=== PATIENT | female | born 1990 | race Caucasian/White ===

== ENCOUNTER 2016-11-04 16:02 | Inpatient (IN) | payer OTHER ==
[~2016-11-04] VITALS: Ht 167.6 cm; Wt 94.0 kg
[2016-11-04 16:29] VITALS: BP 130/62
[2016-11-04] MEDS ORDERED: ACET50TA PO (16:51)
[2016-11-04] MEDS ORDERED: PRENTAB9 PO (16:51)
[2016-11-04] MEDS ORDERED: LACTATED RINGER'S 1000 ML IV STA (17:27)
--- NOTE | 2016-11-04 17:44 | HPEPDOC ---
Obstetrical History & Physical General Date of Admission November 04, 2016 at 16:02 History of Present Illness 26 yo @ 41+0 by LMP([id number]) and 8+6 wk US on [id number] presents to L &D ambulatory for scheduled IOL d/t pending post-dates. Denies DFM, LOF, VB and CTXs. GBS negative. Chief Complaint: Induction of labor Information Provided By: Patient Age: 26 : 2 Term: 1 Pre-term: 0 Abortions: 0 Livin Care Care: Good Care Number of Visits: 10 Dating Final EDC: Oct 28, 2016 Final EDC for Daily Update: Oct 28, 2016 Final EDC by: LMP LMP: Jan 22, 2016 1st Trimester Date: Mar 20, 2016 Weeks + Days: 8.6 Estimated Date of Confinement: Oct 28, 2016 EGA at Admission: 41.0 Antepartum Course Diagnos(e)s 1. asthma- albuterol inhaler prn(once every 2 wks) 2. excessive wt gain Height (inches): 66 Pre- weight (lbs.): 165 Admission Weight (lbs.): 208 Change in Weight (lbs.): 43 Past Medical History Past Obstetrical History : Past Obstetrical History: Multigravida Date of Delivery: Apr 22, 2010 Gestation: 40 Type of Delivery: Spontaneous Vaginal Del. Sex of Infant: Female Weight of (grams): 3061 Complications: No IMMUNOCHEMIST History: No pertinent history Past Medical History Surgical History: Tonsilectomy (with adnoids 2000), [place] teeth (2006), Other (extra bone removal from R foot in 2000) Family History Significant Family History: No pertinent family hx Social History Marital Status: Family situation: Spouse/partner home Psychosocial History: No pertinent psych hx * Smoker: non-smoker Alcohol: Denies Drugs: denies Abuse Violence Screening Have you been hit/kicked/slapp: No Have you been sexually assault: No Imunizations Tdap status: current ([id number]) Influenza Status: declined Allergies Coded Allergies: No Known Allergies (Unverified , 11/04/16) Medications Scheduled Multivitamins/ ( 27-0.8 mg) 1 Tab Tab, 1 TAB PO DAILY Scheduled PRN Acetaminophen (Mapap) 500 Mg Tab, 1,000 MG PO for DISCOMFORT Physical Examination Physical Examination GENERAL: A&O x 3 BREAST: ABDOMEN: Gravid and non-tender to touch FETUS: VTX by Dada's and SVE EFW: 3400 grams HEART RATE: RRR, no m/r/g LUNGS: CTA EXTREMITIES: No edema. No clonus. DTR + 1 During exam gomez bulb placed with 60 ml NS, then placed to traction. Laboratory Data [facility] Laboratory Tests 2 11/04/16 16:24: Serology Scanned Report Hepatitis B Testing CBC/BMP [id number] CBC 9.9/11.7/36.1/190 [id number] CBC 7.8/11.1/33.6/162 Urine Culture: Other (mixed jose m) Pertinent Laboratoy Data Blood Type: A+ RBC Antibody Screen: Negative HIV: Negative Hepatitis B: Negative Hepatitis C: Unknown Rapid Plasma Reagin: Nonreactive Rubella: Immune Varicella: Immune Chlamydia/Gonorrhea: Negative Group B Streptococcus: Negative Quad Screen Test: Declined Cystic Fibrosis: Declined Glucose Tolerance Test: 105 Anatomy Ultrasound Ultrasound Date: Jun 10, 2016 Placenta Location: Left Lateral Normal Anatomy: Yes Placenta Previa: No Steroid Therapy Steroid Therapy: No Vaginal Examination Dilation: 1cm Effacement: 0-30% Station: -2 Cervical Consistency: Medium Cervical Position: Middle Presentation: Cephalic presentation Position: Vertex (occiput) Assessment Heart Rate (FHR): 140 Variability: Moderate Accelerations: Positive Decelerations: Late (when patient is flat on her back and has a CTX she either has a late or a variable. Once she is on her side this resolves.), Variable Tocometer Contractions: Yes Frequency: irregular, greater than 9 min/apart Duration: less than 90 seconds Strength: palpated as mild, resting tone palp/soft Multi-drug resistant Organism: No history of MDRO Assessment/Plan Assessment 26 yo @ 41+0 by LMP([id number]) and 8+6 wk US on [id number] presents to L &D ambulatory for scheduled IOL d/t pending post-dates. Denies DFM, LOF, VB and CTXs. GBS negative. Plan Admit and orient. Small Engine Mechanic and consent. Diet:clear liquids GBS negative Labs and IV per unit protocol. Counseled on use of gomez bulb for IOL LR 1000 ml bolus, then LR @ 125 ml/hr Anticipate C-S as appropriate. BIA CARR. TEN November 04, 2016 17:44
[2016-11-04 18:09] LABS: MEAN CORPUSCULAR HEMOGLOBIN 25.1 pg (27.0-33.0); MEAN CORPUSCULAR HGB CONC 31.6 g/dl (32.0-36.5); MEAN CORPUSCULAR VOLUME 79.4 fl (80.0-96.0); RED CELL DISTRIBUTION WIDTH 14.9 % (11.5-14.5); WHITE BLOOD COUNT 10.1 K/mm3 (4.0-10.0)
[2016-11-04 18:28] VITALS: BP 106/54
--- NOTE | 2016-11-04 19:52 | IPNPDOC ---
Text Note Date of Service The patient was seen on 11/04/16. NOTE Report to Dr. Fowler @ 1930 Yaniv TORREZ, I+O aYniv TORREZ, I+O Laboratory Tests 11/04/16 17:19 Red Blood Count 4.47, Mean Corpuscular Volume 79.4 L, Mean Corpuscular Hemoglobin 25.1 L, Mean Corpuscular Hemoglobin Concent 31.6 L, Red Cell Distribution Width 14.9 H Vital Signs Date Time Temp Pulse Resp B/P (MAP) Pulse Ox O2 Delivery O2 Flow Rate FiO2 11/04/16 18:28 98.2 73 18 106/54 (71) BIA CARR CNM November 04, 2016 19:52
[2016-11-04] MEDS: miSOPROStol 50 MCG 1/2 TAB (S0191) PO SCH (20:16)
[2016-11-05] VITALS (57 sets, daily range): BP systolic 103–147; BP diastolic 52–78
[2016-11-05] MEDS: miSOPROStol 50 MCG 1/2 TAB (S0191) PO SCH ×2 (00:36→04:44)
[2016-11-05] MEDS: LR 1,000 ML IV SCH ×3 (09:06→21:31)
[2016-11-05] MEDS ORDERED: OXYTOCIN 30 UNITS IN 0.9% NaCl 500ML IV BAG (J2590) As Ordered ONE (09:09)
--- NOTE | 2016-11-05 09:09 | IPNPDOC ---
Text Note Date of Service The patient was seen on 11/05/16. NOTE SBAR from Dr Fowler at 0730 this AM. Chart reviewed, mild asthma well controlled. IOL now at 41+1, s/p miso X3 and FB that came out at ~0415. Last miso 0444. NST is Cat 1 and ctx's are irreg/sometimes regular, not overly painful yet. Cx 4/75/-2, a bit ballotable, membranes intact. a/p: Doing well, plan on pitocin start now. D/W Eunice, RN Sessions VS,Yaniv, I+O VS, Yaniv I+O Laboratory Tests 11/04/16 17:19 Red Blood Count 4.47, Mean Corpuscular Volume 79.4 L, Mean Corpuscular Hemoglobin 25.1 L, Mean Corpuscular Hemoglobin Concent 31.6 L, Red Cell Distribution Width 14.9 H Vital Signs Date Time Temp Pulse Resp B/P (MAP) Pulse Ox O2 Delivery O2 Flow Rate FiO2 11/04/16 18:28 98.2 73 18 106/54 (71) I&O- Last 24 Hours up to 6 AM 11/05/16 05:59 Intake Total 560 ml Balance 560 ml SESSIONS,KIA Shane MD November 05, 2016 09:09
[2016-11-05] MEDS ORDERED: LR 1,000 ML IV SCH (09:11)
[2016-11-05] MEDS ORDERED: OXYTOCIN DRIP 30 UNITS in APPROPRIATE DILUENT 1 EA IV SCH ×2 (09:15→23:47)
--- NOTE | 2016-11-05 13:27 | IPNPDOC ---
Text Note Date of Service The patient was seen on 11/05/16. NOTE NST Cat 1. Pit at 12. Reg ctx's. Pain increasing but not significant yet. Cx unchanged other than vtx now well engaged. Plan to go up to 20 mu/min as long as fetus tolerates and ctx freq does not prohibit. Recheck in 3-4 hrs, sooner prn, safe to cont Sessions VS,Yaniv, I+O VSYaniv I+O Laboratory Tests 11/04/16 17:19 Red Blood Count 4.47, Mean Corpuscular Volume 79.4 L, Mean Corpuscular Hemoglobin 25.1 L, Mean Corpuscular Hemoglobin Concent 31.6 L, Red Cell Distribution Width 14.9 H Vital Signs Date Time Temp Pulse Resp B/P (MAP) Pulse Ox O2 Delivery O2 Flow Rate FiO2 11/05/16 12:52 71 18 122/73 (89) 11/05/16 10:52 97.8 I&O- Last 24 Hours up to 6 AM 11/05/16 06:00 Intake Total 560 ml Balance 560 ml SESSIONS,KIA Shane MD November 05, 2016 13:27
--- NOTE | 2016-11-05 16:37 | IPNPDOC ---
Text Note Date of Service The patient was seen on 11/05/16. NOTE NST Cat 1, reg ctx's q2-3 min Pit at 14 mu/min Cx loose 4 cm/80/-1, vtx very well applied AROM with small amt clear fluid Plan on recheck in ~3-4 hrs, sooner prn epidural on demand Sessions VS,Yaniv, I+O VS, Yaniv I+O Laboratory Tests 11/04/16 17:19 Red Blood Count 4.47, Mean Corpuscular Volume 79.4 L, Mean Corpuscular Hemoglobin 25.1 L, Mean Corpuscular Hemoglobin Concent 31.6 L, Red Cell Distribution Width 14.9 H Vital Signs Date Time Temp Pulse Resp B/P (MAP) Pulse Ox O2 Delivery O2 Flow Rate FiO2 11/05/16 15:52 78 18 125/74 (91) 11/05/16 14:51 98.2 I&O- Last 24 Hours up to 6 AM 11/05/16 06:00 Intake Total 560 ml Balance 560 ml SESSIONS,KIA Shane MD November 05, 2016 16:37
[2016-11-05] MEDS ORDERED: FENTANYL 2MCG/ML ROPIVACAINE 0.2% IN 0.9% NACL 200ML IVBAG As Ordered ONE (16:55)
[2016-11-05 17:23] LABS: MEAN CORPUSCULAR HEMOGLOBIN 25.4 pg (27.0-33.0); MEAN CORPUSCULAR HGB CONC 30.6 g/dl (32.0-36.5); MEAN CORPUSCULAR VOLUME 82.8 fl (80.0-96.0); RED CELL DISTRIBUTION WIDTH 14.9 % (11.5-14.5); WHITE BLOOD COUNT 14.1 K/mm3 (4.0-10.0)
[2016-11-05] MEDS ORDERED: FENTANYL/ROPIVACAINE/NACL BAG 200 ML EPIDURAL SCH (19:00)
[2016-11-05] MEDS ORDERED: LACTATED RINGER'S 1000 ML IV PRN (19:00)
[2016-11-05] MEDS ORDERED: REFRIGERATOR IV KEYS XX PRN (19:00)
[2016-11-05] MEDS ORDERED: NALOXONE INJ 0.4 MG/1 ML VIAL (J2310) IV PRN (19:00)
[2016-11-05] MEDS ORDERED: ONDANSETRON 4MG/2ML VIAL (J2405) IV PRN (19:00)
[2016-11-05] MEDS ORDERED: EPIDURAL COMMENT XX SCH (19:00)
[2016-11-05] MEDS ORDERED: EPIDURAL/PCA KEYS XX PRN (19:00)
[2016-11-05] MEDS ORDERED: ePHEDrine SULFATE 25 MG/5 ML(5MG/ML) SYRINGE IV PRN (19:00)
[2016-11-05] MEDS ORDERED: diphenhydrAMINE INJ 50MG/ML VIAL (J1200) IV PRN (19:00)
--- NOTE | 2016-11-05 19:57 | IPNPDOC ---
Text Note Date of Service The patient was seen on 11/05/16. NOTE S/P epidural >1 hr ago, I was called about 30 min post-procedure and was having decels but diff to determine whether lates or early's. BP was WNL, no signif hypotension noted, but due to new onset FHT changes post-epidural, 5 mg ephedrine given. No change in BP noted and also surprisingly no improvement in FHT. Cx 5-6/90/-1. IUPC placed and pitocin decreased to 5 mu/min. A few decels with a late component noted and pitocin shut off and a 500 cc bolus given as her pre-epidural bolus was just 500 cc's. Continuing to contract regularly, and now has persistent early decels only, no repetitive lates present. Will watch closely. Just now T 100.9 so will Tx with Unasyn 3 gm q 6 hrs. Sessions VS,Yaniv I+O VS, Yaniv I+O Laboratory Tests 11/05/16 17:08 Red Blood Count 4.53, Mean Corpuscular Volume 82.8, Mean Corpuscular Hemoglobin 25.4 L, Mean Corpuscular Hemoglobin Concent 30.6 L, Red Cell Distribution Width 14.9 H Vital Signs Date Time Temp Pulse Resp B/P (MAP) Pulse Ox O2 Delivery O2 Flow Rate FiO2 11/05/16 17:47 73 18 131/69 (89) 11/05/16 14:51 98.2 I&O- Last 24 Hours up to 6 AM 11/05/16 06:00 Intake Total 560 ml Balance 560 ml SESSIONS,KIA Shane MD November 05, 2016 19:57
[2016-11-05] MEDS: DOCUSATE SODIUM 100 MG CAP PO SCH (21:00)
[2016-11-05] MEDS ORDERED: AMPICILLIN SOD/SULBACTAM SOD 3 GM in D5W MINI-BAG PLUS 100 ML IV SCH (21:00)
--- NOTE | 2016-11-05 21:16 | IPNPDOC ---
Text Note Date of Service The patient was seen on 11/05/16. NOTE Prior FHT problems resolved with early's often present but no persistent lates. Pitocin off for 1 hr and restarted, on 20 min and had a prolonged decel to 90' s for 8 min (mod leisa throughout however) that responded to cx check/scalp stim, position change, pitocin off and O2 and a bolus given, Cx 7-8/90/0. Now FHR BL is 110 with accels and mod leisa. Will not give any more pitocin as long as continues to change. Recheck in 2 hrs, sooner prn. Sessions VS,Yaniv I+O VS, Yaniv I+O Laboratory Tests 11/05/16 17:08 Red Blood Count 4.53, Mean Corpuscular Volume 82.8, Mean Corpuscular Hemoglobin 25.4 L, Mean Corpuscular Hemoglobin Concent 30.6 L, Red Cell Distribution Width 14.9 H Vital Signs Date Time Temp Pulse Resp B/P (MAP) Pulse Ox O2 Delivery O2 Flow Rate FiO2 11/05/16 19:48 80 125/58 (80) 11/05/16 18:48 18 11/05/16 14:51 98.2 I&O- Last 24 Hours up to 6 AM 11/05/16 06:00 Intake Total 560 ml Balance 560 ml SESSIONS,KIA Shane MD November 05, 2016 21:16
[2016-11-05 23:40] LABS: CORD GAS ABE V -5.7; CORD GAS O2 SAT V 73.7 %; CORD GAS PH V 7.286 UNITS; CORD GAS PO2 V 34.8 mmHg; CORD GAS SBC V 19.3 MEQ/L; CORD GAS TCO2 V 22.3 MEQ/L
[2016-11-05 23:43] LABS: CORD GAS ABE A -6.6; CORD GAS HCO3 A 21.7 MEQ/L; CORD GAS O2 SAT A 44.2 %; CORD GAS PCO2 A 54.6 mmHg; CORD GAS PH A 7.218 UNITS; CORD GAS SBC A 17.9 MEQ/L; CORD GAS TCO2 A 23.4 MEQ/L
--- NOTE | 2016-11-05 23:47 | DNPDOC ---
[facility] Delivery Note Delivery Note DATE OF DELIVERY: November 04, 2016 at 16:02 PREDELIVERY DIAGNOSIS: 41+1/7 weeks' gestation and labor. POST DELIVERY DIAGNOSIS: Delivered. PROCEDURE: Low vacuum assisted vaginal delivery DIRECTOR PRIVATE: Dr. Payne ANESTHESIA: Epidural ESTIMATED BLOOD LOSS: 200 mL. FINDINGS: wt pending, male, Score 8/9, nuchal cord X1 DELIVERY SUMMARY: Ctx'd significantly spaced out but very adeq pelvis and cx at AL. Was able to push past the cx and bring to +1-+2, BRYSON. FHR mostly 90's, low 100's. Due to this, I recommended immediate low vacuum delivery. Pt agreed after disc of R/B/I/A. Peds team enroute and anesthesia aware of possible need for . Vac applied and 3 ctx sets/pulls effected vtx to + 5. No pop-offs. Vac removed and with one final ctx set and no vacuum del'd the vtx, single nuchal reduced. No dystocia. Limp infant that quickly perked up on mother's abdomen. Cord C/C by FOB, taken to warmer, Dr Tavarez present for resuscitation. Cord blood obtained, cord gasses pending. Placenta intact with traction and massage. Pit going wide open and fundus firm. No lacs. EBL 200. Sessions KIA ROCHA MD November 05, 2016 23:47
[2016-11-06] VITALS (8 sets, daily range): BP systolic 107–134; BP diastolic 55–69
[2016-11-06] MEDS ORDERED: ACETAMINOPHEN TAB 650MG DOSE (2X325MG) PO PRN
[2016-11-06] MEDS ORDERED: DIBUCAINE 1% OINTMENT 30GM TOP PRN
[2016-11-06] MEDS ORDERED: RHOGAM 300 MCG (1500 IU) INJ (J2790) IM SCH
[2016-11-06] MEDS ORDERED: MEASLES,MUMPS,RUBELLA VACCINE INJ (MMR-II) (90707) SC SCH
[2016-11-06] MEDS ORDERED: METOCLOPRAMIDE INJ 10MG/2ML VIAL (J2765) IV PRN
[2016-11-06] MEDS ORDERED: OXYTOCIN DRIP 30 UNITS in APPROPRIATE DILUENT 1 EA IV SCH (00:30)
[2016-11-06] MEDS: IBUPROFEN 800 MG TAB PO PRN ×2 (00:52→18:41)
--- NOTE | 2016-11-06 06:59 | IPNPDOC ---
Text Note Date of Service The patient was seen on 11/06/16. NOTE Just barely PPD1 prog note, delivered last night at 2328. Low vacuum delivery due to NRFHT. States feeling well, no complaints. No heavy VB. Pain controlled. Voiding, ambulatory. Bonding well and bottle feeding. VSSAF CTAB RRR Ut at U-2, firm Ext no CCE a/p: Doing well, likely d/c tomorrow as is a multip. Sessions VSYaniv, I+O VSYaniv I+O Laboratory Tests 11/05/16 17:08 Red Blood Count 4.53, Mean Corpuscular Volume 82.8, Mean Corpuscular Hemoglobin 25.4 L, Mean Corpuscular Hemoglobin Concent 30.6 L, Red Cell Distribution Width 14.9 H Vital Signs Date Time Temp Pulse Resp B/P (MAP) Pulse Ox O2 Delivery O2 Flow Rate FiO2 11/06/16 06:27 97.9 65 16 107/55 (72) I&O- Last 24 Hours up to 6 AM 11/06/16 06:00 Intake Total 3060 ml Output Total 3830 ml Balance -770 ml SESSIONS,KIA Shane MD November 06, 2016 06:59
[2016-11-06] MEDS: PRENATAL VITAMIN TAB PO SCH (08:38)
[2016-11-06] MEDS: DOCUSATE SODIUM 100 MG CAP PO SCH ×2 (08:38→19:47)
--- NOTE | 2016-11-06 10:57 | IPN ---
DATE OF SERVICE: 11/06/2016 This patient and requested circumcision of their male after discussing the risks and benefits of circumcision, the medical and nonmedical indications, penile block, and the aftercare. Both expressed understanding of the penile block and aftercare. Signed and witnessed the consent form. We await the clearance by the data reporting analyst. All questions were answered.
[2016-11-07 05:43] VITALS: BP 122/64
[2016-11-07] MEDS: DOCUSATE SODIUM 100 MG CAP PO SCH (08:24)
[2016-11-07] MEDS: PRENATAL VITAMIN TAB PO SCH (08:24)
[2016-11-07] MEDS: IBUPROFEN 800 MG TAB PO PRN (08:24)
[2016-11-07] MEDS ORDERED: COLA100C3 PO (12:04)
[2016-11-07 15:44] VITALS: BP 109/71
== END 2016-11-07 12:40 | disposition home or self-care (01) | DRG 775 ==
LOC: M LDI 16:02 → M OBS 11-06 01:35
PROVIDERS: ADMIT Midwife; ATTEND Obstetrics & Gynecology
PROC: 3E0P7GC Introduction of Other Therapeutic Substance into Female Reproductive, Via Natural or Artificial Opening (ICD-10-PCS; 2016-11-04)
PROC: 10D07Z6 Extraction of Products of Conception, Vacuum, Via Natural or Artificial Opening (ICD-10-PCS; principal; 2016-11-05)
PROC: 10907ZC Drainage of Amniotic Fluid, Therapeutic from Products of Conception, Via Natural or Artificial Opening (ICD-10-PCS; 2016-11-05)
DX: O48.0 Post-term pregnancy (principal); Z3A.41 41 weeks gestation of pregnancy; O69.81X0 Labor and delivery complicated by cord around neck, without compression, not applicable or unspecified; O76 Abnormality in fetal heart rate and rhythm complicating labor and delivery; Z37.0 Single live birth